=== PATIENT | male | born 1970 | race Caucasian/White ===

== ENCOUNTER 2018-05-06 06:46 | Day surgery (SDC) | payer OTHER ==
[2018-05-06] MEDS ORDERED: OMEP20TC12 PO (07:56)
[2018-05-06] MEDS ORDERED: LIP80 PO (07:56)
[2018-05-06] MEDS ORDERED: MIDAZOLAM 2 MG/2 ML VIAL ONE (08:34)
[2018-05-06] MEDS ORDERED: fentaNYL 0.05 MG/ML VIAL ONE (08:34)
[2018-05-06] MEDS ORDERED: LIDOCAINE VISCOUS 2% 20 ML UDC ONE (08:35)
== END 2018-05-06 09:30 | disposition home or self-care (01) ==
LOC: MDS 06:46 → MMU 06:47 → MDS 09:30
PROVIDERS: ATTEND Internal Medicine Gastroenterology
DX: K22.10 Ulcer of esophagus without bleeding (principal); K31.89 Other diseases of stomach and duodenum; K21.9 Gastro-esophageal reflux disease without esophagitis; E78.00 Pure hypercholesterolemia, unspecified; E66.3 Overweight; F17.210 Nicotine dependence, cigarettes, uncomplicated; Z79.899 Other long term (current) drug therapy
CPT/HCPCS: 36415; 86677; J2250; J3010